=== PATIENT | male | born 1965 | race American Indian/Alaskan Native ===

== ENCOUNTER 2019-10-10 09:56 | Outpatient (CLI) | payer MEDICARE, MEDICAID, SELFPAY | END 2019-10-10 09:57 | disposition home or self-care (01) | PROVIDERS: PCP Internal Medicine; Visit Provider Nurse Practitioner Family | DX: J30.9 Allergic rhinitis, unspecified (principal); J30.1 Allergic rhinitis due to pollen | CPT/HCPCS: 36415; 82785; 86003 ==

== ENCOUNTER 2019-10-15 09:08 | Outpatient (CLI) | payer MEDICARE, MEDICAID, SELFPAY ==
--- NOTE | ~2019-10-15 | CT_ITS ---
EXAMINATION: CT abdomen pelvis w con INDICATION: Nausea, hematochezia, weight loss TECHNIQUE: Computed tomographic images of the abdomen and pelvis were obtained after the administrati on of 100 cc of Omnipaque 350 intravenous contrast. The dose-length product (DLP) was 833.15 mGy-cm. Automated exposure control and iterative reconstruction technique were employed. COMPARISON: 07/24/2016 FINDINGS: Minimal dependent atelectasis is present in the lung bases. The heart size is normal. The l iver is diffusely low in attenuation when compared with the spleen, consistent with hepatic steatosis . The spleen, pancreas, and adrenal glands are normal. Cysts of the kidneys measure up to 5 cm on the right. No pathologically enlarged abdominal or pelvic lymph nodes are identified. There is no free i ntraperitoneal gas or evidence of bowel obstruction. There is a diverticulum of the second/third port ion of the duodenum. The appendix is normal. There is moderate lower lumbar spondylosis. Skin thicken ing or inflammatory change are seen near the umbilicus. There appears to be mild thickening of the bl adder wall. IMPRESSION: 1. No CT correlate for the patient's symptoms. 2. Mild circumferential thickening of the bladder wall which may reflect chronic outlet obstruction. 3. Diffuse hepatic steatosis. Reviewed, dictated and finalized at location A. OW INSTALLATION SUBCONTRACTOR IMPRESSION: 1. No CT correlate for the patient's symptoms. 2. Mild circumferential thickening of the bladder wall which may reflect chroni c outlet obstruction. 3. Diffuse hepatic steatosis.
[2019-10-15 09:50] LABS: Blood Urea Nitrogen 17 mg/dL (8-26); Estimated Glomerular Filt Rate > 60
== END 2019-10-15 09:09 | disposition home or self-care (01) ==
LOC: ANHIMG 09:12
PROVIDERS: PCP Internal Medicine; Visit Provider Nurse Practitioner Family
DX: R11.0 Nausea (principal); K92.1 Melena; K76.0 Fatty (change of) liver, not elsewhere classified; R63.4 Abnormal weight loss; N32.9 Bladder disorder, unspecified
CPT/HCPCS: 74177; Q9967

== ENCOUNTER 2019-10-17 07:21 | Outpatient (CLI) | payer MEDICARE, MEDICAID, SELFPAY ==
--- NOTE | ~2019-10-17 | NM_ITS ---
EXAM: NM gastric emptying study DATE: 10/17/2019 12:47 INDICATION: Gastroesophageal reflux disease. TECHNIQUE: A gastric emptying study was performed using the methodology of Josafat DIGGS, et al. J Nucl Med 2007; 48:568-572. The patient was given a meal consisting of 2 scrambled eggs labeled with 0.972 mCi Tc-99m sulfur colloid, 2 slices of toast, two packages of jam, and approximately 120 mL of water . Simultaneous anterior and posterior 1-min images of the abdomen were obtained with the patient supi ne at multiple time points over a total period of 4 hours. The geometric mean of anterior and posteri or views was determined, and the percentage retention was calculated for each time point. COMPARISON: CT abdomen and pelvis 10/15/2019 FINDINGS: Gastric retention of the radiotracer-labeled meal was 25%, 80%, and 47% at the 1-hour, 2-h our, and 4-hour time points, respectively. With this technique, apparent rapid gastric emptying is de león ggested by <30% gastric retention at 1 hour. Delayed gastric emptying is defined by gastric retention of >90% at 1 hour, >60% retention at 2 hours, or >10% retention at 4 hours. IMPRESSION: 1. Delayed gastric emptying. Reviewed, dictated and finalized at location A. AINABLE DESIGN COORDINATOR
== END 2019-10-17 07:22 | disposition home or self-care (01) ==
PROVIDERS: PCP Internal Medicine; Visit Provider Nurse Practitioner Family
DX: R11.0 Nausea (principal); K21.9 Gastro-esophageal reflux disease without esophagitis; K30 Functional dyspepsia
CPT/HCPCS: 78264; A9541

== ENCOUNTER 2021-06-07 10:33 | Outpatient (CLI) | payer MEDICARE, MEDICAID, SELFPAY | END 2021-06-07 10:34 | disposition home or self-care (01) | LOC: ANHAUDIO 10:34 | PROVIDERS: PCP Internal Medicine; Visit Provider Internal Medicine | DX: H91.93 Unspecified hearing loss, bilateral (principal) | CPT/HCPCS: 99199 ==

== ENCOUNTER 2021-10-24 12:35 | Outpatient (CLI) | payer MEDICARE, MEDICAID, SELFPAY | END 2021-10-24 12:36 | disposition home or self-care (01) | LOC: ANHAUDIO 12:37 | PROVIDERS: PCP Internal Medicine; Visit Provider Internal Medicine | DX: H90.3 Sensorineural hearing loss, bilateral (principal) | CPT/HCPCS: 92557; 92567 ==

== ENCOUNTER 2021-11-23 09:18 | Outpatient (RCR) | payer MEDICARE, MEDICAID, SELFPAY | END 2021-11-23 23:59 | disposition home or self-care (01) | LOC: ANHAUDIO 09:18 | PROVIDERS: PCP Internal Medicine; Referring Provider Internal Medicine; Visit Provider Internal Medicine | DX: Z46.1 Encounter for fitting and adjustment of hearing aid (principal) | CPT/HCPCS: V5160; V5261 ==

== ENCOUNTER 2021-12-06 07:47 | Outpatient (CLI) | payer MEDICARE, MEDICAID, SELFPAY ==
[2021-12-06 08:45] LABS: Hemoglobin A1C 7.1 % (<5.7)
[2021-12-06 08:46] LABS: Alanine Aminotransferase 24 U/L (4-50); Albumin Level 4.4 g/dL (3.5-5.1); Alkaline Phosphatase 55 U/L (38-126); Anion Gap 8 mmol/L (8-16); Aspartate Amino Transferase 27 U/L (17-59); Bilirubin,Total 0.5 mg/dL (0.2-1.3); Blood Urea Nitrogen 20 mg/dL (9-20); Carbon Dioxide 28 mmol/L (22-30); Chloride 105 mmol/L (98-107); Cholesterol 94 mg/dL (0-200); Estimated Glomerular Filt Rate > 60; Glucose 113 mg/dL (65-110); HDL Direct 26 mg/dL; Potassium 4.2 mmol/L (3.4-5.0); Sodium 141 mmol/L (137-145); Triglycerides 120 mg/dL (<150)
[2021-12-06 08:57] LABS: LDL Cholesterol Direct 44 mg/dL
[2021-12-06 09:04] LABS: Creatinine Urine 92.2 mg/dL
[2021-12-06 09:07] LABS: Microalbumin Urine Random 6.5 mg/L (0-16.7)
== END 2021-12-06 07:48 | disposition home or self-care (01) ==
LOC: ANHLAB 07:49
PROVIDERS: PCP Internal Medicine; Visit Provider Internal Medicine
DX: E11.9 Type 2 diabetes mellitus without complications (principal)
CPT/HCPCS: 36415; 80053; 80061; 82043; 83036

== ENCOUNTER 2022-03-23 09:35 | Outpatient (CLI) | payer MEDICARE, MEDICAID, SELFPAY ==
--- NOTE | ~2022-03-23 | US_ITS ---
EXAMINATION: US abdomen complete DATE: 03/23/2022 10:13 INDICATION: Nonalcoholic fatty liver disease. TECHNIQUE: Multiple grayscale and Doppler ultrasound images of the abdomen were obtained. COMPARISON: CT abdomen and pelvis 10/15/2019 FINDINGS: The pancreas is obscured by bowel gas. The liver is normal without focal lesion. No liver s urface nodularity. There is normal flow in main portal vein. The gallbladder is not well visualized. The common duct is normal and measures 5 mm. Inferior vena cava is normal. Abdominal aorta is normal in caliber. The kidneys are normal in size. There is a 6.5 cm cyst in right kidney. The spleen is nor mal in size. IMPRESSION: 1. Normal liver. Reviewed, dictated and finalized at location A. IMPRESSION: 1. Normal liver.
== END 2022-03-23 09:36 | disposition home or self-care (01) ==
PROVIDERS: PCP Physician Assistant Medical; Visit Provider Physician Assistant Medical
DX: K76.0 Fatty (change of) liver, not elsewhere classified (principal); N28.1 Cyst of kidney, acquired
CPT/HCPCS: 76700

== ENCOUNTER 2022-03-27 15:56 | Emergency (ER) | payer MEDICARE, MEDICAID, SELFPAY ==
[2022-03-27 16:08] VITALS: BP 143/62; PULSE 70; RESP 16; TEMP 36.8; O2SAT 99
--- NOTE | 2022-03-27 16:14 | ED.URI ---
HPI - URI/Sore Throat General Chief Complaint: Upper Respiratory Infection Stated Complaint: Congestion Time Seen by Provider: 03/27/22 16:14 Source: patient, RN notes reviewed and old records reviewed Mode of arrival: ambulatory Limitations: no limitations History of Present Illness HPI Narrative: 56-year-old male with a history of diabetes, depression, hypertension presents to the [facility] with complaints of productive cough. Denies chest pain, abdominal pain. Denies fevers. Symptoms for over 2 weeks. Related Data Home Medications Medication Instructions Recorded Confirmed acidophilus 100 million 1 cap PO DAILY 06/25/19 01/04/22 cell-pectin, citrus 10 mg capsule (Acidophilus Probiotic) atorvastatin 20 mg tablet 20 mg PO DAILY 06/25/19 01/04/22 citalopram 40 mg tablet 40 mg PO DAILY 06/25/19 01/04/22 eluxadoline 100 mg tablet (Viberzi) 100 mg DAILY 06/25/19 01/04/22 gabapentin 800 mg tablet 800 mg TID 06/25/19 01/04/22 insulin glargine 100 unit/mL (3 150 unit subcut ONCE 06/25/19 01/04/22 mL) subcutaneous pen (Basaglar KwikPen U-100 Insulin) lisinopril 40 mg tablet 40 mg PO DAILY 06/25/19 01/04/22 pantoprazole 40 mg tablet,delayed 40 mg PO QAM 06/25/19 01/04/22 release vitamin B complex (B 1 tablet PO DAILY 06/25/19 01/04/22 Complex-Vitamin B12 tablet) empagliflozin 10 mg tablet 10 mg PO DAILY 01/04/22 01/04/22 (Jardiance) Aspir-81 03/27/22 insulin aspart U-100 100 unit/mL subcut 03/27/22 (3 mL) subcutaneous pen (Novolog Flexpen U-100 Insulin aspart) nifedipine 90 mg tablet,extended mg PO 03/27/22 release Allergies Allergy/AdvReac Type Severity Reaction Status Date / Time insulin glulisine Allergy Severe HIVES Verified 01/04/22 12:59 Review of Systems Review of Systems: All systems reviewed & are unremarkable except as noted in HPI and below Constitutional: Constitutional: Reports no additional constitutional complaints, Denies chills and Denies fever(s) Eyes: Eyes: Reports no additional eye complaints ENT: Reports system reviewed and no additional complaints, except as documented Cardiovascular: Cardiovascular: Reports no additional cardiovascular complaints Respiratory: Respiratory: Reports as per HPI, Reports chest congestion, Reports cough, Denies dyspnea and Denies wheezing Gastrointestinal: Gastrointestinal: Reports no additional gastrointestinal complaints Musculoskeletal: Musculoskeletal: Reports no additional musculoskeletal complaints Integumentary/Breasts: Skin/Breast: Reports system reviewed and no additional complaints, except as docu Neurologic: Reports system reviewed and no additional complaints, except as documented Psychiatric: Psychiatric: Reports no additional psychiatric complaints Allergic/Immunologic: Allergic/Immunologic: Reports no additional allergic/immunologic complaints [facility] Past Medical History Medical History Allergic rhinitis, unspecified Asthma Cough Essential (primary) hypertension Obstructive sleep apnea (adult) (pediatric) Physical deconditioning SOB (shortness of breath) Family History Family History Grandparent Family history of blood dyscrasia Hypertension Family history of lung cancer Diabetes mellitus Mother Depression Family history of migraine headaches Cerebrovascular accident Carcinoma of colon Family history of Alzheimer's disease Family history of seizure disorder Family history of malignant neoplasm Family history of dementia Father Depression Carcinoma of colon Family history of diabetes mellitus in first degree relative Diabetes mellitus Family history of kidney disease Family history of chronic obstructive pulmonary disease Family history of malignant melanoma Sibling Diabetes mellitus Family history of sleep apnea Other Family history of alcoholism Family h
== END 2022-03-27 16:39 | disposition home or self-care (01) ==
PROVIDERS: Emergency Provider Nurse Practitioner; PCP Internal Medicine
DX: J21.9 Acute bronchiolitis, unspecified (principal); J45.909 Unspecified asthma, uncomplicated; I10 Essential (primary) hypertension; G47.33 Obstructive sleep apnea (adult) (pediatric)
CPT/HCPCS: 99213; G0463

== ENCOUNTER 2022-10-13 08:26 | Outpatient (CLI) | payer MEDICARE, MEDICAID, SELFPAY ==
[2022-10-13 09:15] LABS: Alanine Aminotransferase 26 U/L (6-50); Albumin Level 4.2 g/dL (3.5-5.1); Alkaline Phosphatase 61 U/L (38-126); Anion Gap 7 mmol/L (8-16); Aspartate Amino Transferase 23 U/L (17-59); Bilirubin,Total 0.5 mg/dL (0.2-1.3); Blood Urea Nitrogen 18 mg/dL (9-20); Calcium 8.7 mg/dL (8.4-10.2); Carbon Dioxide 25 mmol/L (22-30); Chloride 106 mmol/L (98-107); Estimated Glomerular Filt Rate > 60; Glucose 170 mg/dL (65-110); Potassium 4.4 mmol/L (3.4-5.0); Sodium 138 mmol/L (137-145)
[2022-10-13 09:44] LABS: Prostate Specific Antigen 0.2 ng/mL (< OR = 4.0)
[2022-10-13 10:50] LABS: Creatinine Urine 55.6 mg/dL
[2022-10-13 16:57] LABS: MALB Creatinine Ratio < 10.8 mg/g (0-30); Microalbumin Urine Random < 6.0 mg/L (0-16.7)
== END 2022-10-13 08:27 | disposition home or self-care (01) ==
PROVIDERS: PCP Internal Medicine; Visit Provider Internal Medicine
DX: E11.9 Type 2 diabetes mellitus without complications (principal); Z12.5 Encounter for screening for malignant neoplasm of prostate
CPT/HCPCS: 36415; 80053; 82043; 83036; 84153; G0103

== ENCOUNTER 2023-02-15 08:36 | Outpatient (CLI) | payer MEDICARE, MEDICAID, SELFPAY ==
[2023-02-15 09:21] LABS: Hematocrit 45.1 % (42.0-52.0); Hemoglobin 15.3 g/dL (14.0-18.0); Mean Corpuscular HGB Conc 33.9 g/dl (32-36); Mean Corpuscular Hemoglobin 28.4 pg (26-34); Mean Corpuscular Volume 83.7 fl (80-100); Mean Platelet Volume 11.8 fl (7.4-10.4); Platelet Count Result 204 k/mm3 (150-375); Red Blood Count 5.39 M/mm3 (4.6-6.20); Red Cell Distribution Width 13.7 % (11.5-14.5); White Blood Count 5.9 K/mm3 (4.5-10.0)
[2023-02-15 09:30] LABS: Alanine Aminotransferase 27 U/L (6-50); Albumin Level 4.3 g/dL (3.5-5.1); Alkaline Phosphatase 52 U/L (38-126); Anion Gap 6 mmol/L (8-16); Aspartate Amino Transferase 25 U/L (17-59); Bilirubin,Total 0.5 mg/dL (0.2-1.3); Blood Urea Nitrogen 22 mg/dL (9-20); Carbon Dioxide 27 mmol/L (22-30); Chloride 107 mmol/L (98-107); Cholesterol 96 mg/dL (0-200); Estimated Glomerular Filt Rate > 60; Glucose 118 mg/dL (65-110); HDL Direct 35 mg/dL; Potassium 4.1 mmol/L (3.4-5.0); Sodium 140 mmol/L (137-145); Triglycerides 74 mg/dL (<150)
[2023-02-15 09:41] LABS: LDL Cholesterol Direct 49 mg/dL
[2023-02-15 09:43] LABS: Creatinine Urine 93.5 mg/dL
[2023-02-15 09:47] LABS: Vitamin D 25 Hydroxy 24.4 ng/mL
[2023-02-15 09:47] LABS: MALB Creatinine Ratio 6.8 mg/g (0-30); Microalbumin Urine Random 6.4 mg/L (0-16.7)
== END 2023-02-15 08:37 | disposition home or self-care (01) ==
PROVIDERS: PCP Internal Medicine
DX: E78.2 Mixed hyperlipidemia (principal); E55.9 Vitamin D deficiency, unspecified; E11.65 Type 2 diabetes mellitus with hyperglycemia; Z79.4 Long term (current) use of insulin
CPT/HCPCS: 36415; 80053; 80061; 82043; 82306; 82607; 85027

== ENCOUNTER 2023-03-05 08:59 | Outpatient (CLI) | payer MEDICARE, MEDICAID, SELFPAY ==
--- NOTE | 2023-03-28 19:53 | WPDSLEEPSTUD ---
Sleep Study Date of Study: 03/05/23 Ordering Provider: Rahul Restrepo APRN Interpreting Physician: Silvia Gonsalez DO Sleep Study Type: Split Polysomnogram Height: 1.8 m Weight: 93.44 kg Body Mass Index: 28.7 Neck Circumference (inches): 17.25 [place]: 3 Reason for Sleep Study Told she had sleep apnea while under anesthesia. Sleep History The patient is a 57 year male with diabetes, depression, GERD, asthma, neuropathy, irritable bowel syndrome, hypertension, arthritis and previously diagnosed sleep apnea that had sleep study ordered by the pulmonary group so the patient could requalify for PAP Therapy. the patient rarely awakens from sleep short of breath. He occasionally awakens at night with heartburn, belching or cough. He constantly snores and occasionally loudly enough that others complain. He frequently has trouble sleeping when he has a cold. He denies waking up gasping for air throughout the night. He occasionally has breathing problems at night observed by himself or others. He occasionally sweats excessively at night. He denies having heart palpitations or irregular heartbeats during the night. He frequently falls asleep during the day but never while driving. He denies sleep paralysis, cataplexy and hypnagogic / hypnopompic hallucinations. He denies having trouble at school or work due to sleepiness. He denies feeling afraid of going to sleep. He denies having nightmares. He occasionally remembers his dreams. He occasionally has thoughts racing through his mind. He occasionally feels sad, depressed and anxious. He denies having muscular tension. He denies noticing parts of his body jerk. He occasionally kicks during the night. He denies having crawling and aching feelings in his legs but rarely has leg pain during he occasionally grinds his teeth during sleep never awakens with morning jaw pain. He denies being bothered by pain during the day and denies being awakened by pain during the night. He occasionally wakes up feeling stiff in morning. He denies waking up with sore or achy muscles. He denies waking up with pain in the neck, spine and other joints. He goes to bed between 10-11 p.m. on weekdays and at midnight on the weekends. It takes him 1-2 hours to fall asleep. He wakes up 1-2 times throughout night to urinate and is able to fall back asleep within 15-20 minutes. He wakes up between 6-7 a.m. on weekdays and 8:00 a.m. on weekends. He typically gets 6-8 hours of sleep per night. He will stay in bed for 20-30 minutes after waking up the morning. He currently lives alone. He does not consume any caffeinated beverages within 2 hours of bedtime. He does not engage in physical exercise before bedtime. He will read and watch television before falling asleep. He will take naps in the afternoon or the evening that are refreshing. He consumes 2 caffeinated beverages per day. He denies tobacco, alcohol and recreational drug use. [facility] Past Medical History Medical History Allergic rhinitis, unspecified Asthma Cough Essential (primary) hypertension Obstructive sleep apnea (adult) (pediatric) Physical deconditioning SOB (shortness of breath) Family History Family History Grandparent Family history of blood dyscrasia Hypertension Family history of lung cancer Diabetes mellitus Mother Depression Family history of migraine headaches Cerebrovascular accident Carcinoma of colon Family history of Alzheimer's disease Family history of seizure disorder Family history of malignant neoplasm Family history of dementia Father Depression Carcinoma of colon Family history of diabetes mellitus in first degree relative Diabetes mellitus Family history of kidney disease Family history of chronic obstructive pulmonary disease Family history of malignant melanoma Sib
[2023-03-28 19:56] VITALS: BMI 28.7
== END 2023-03-06 06:56 | disposition home or self-care (01) ==
LOC: ANHCSM 09:00
PROVIDERS: PCP Internal Medicine; Visit Provider Nurse Practitioner Family
DX: G47.33 Obstructive sleep apnea (adult) (pediatric) (principal); E11.9 Type 2 diabetes mellitus without complications; K21.9 Gastro-esophageal reflux disease without esophagitis; I10 Essential (primary) hypertension; J45.909 Unspecified asthma, uncomplicated
CPT/HCPCS: 95811

== ENCOUNTER 2023-12-25 09:03 | Outpatient (CLI) | payer MEDICARE, MEDICAID, SELFPAY ==
[2023-12-25 09:45] LABS: Basophils Percent Auto 0.5 % (0.2-1.2); Eosinophils Absolute Auto 0.1 K/mm3 (0-0.3); Eosinophils Percent Auto 1.1 % (0-4.4); Hematocrit 42.2 % (42.0-52.0); Hemoglobin 14.1 g/dL (14.0-18.0); Immature Granulocyte Absolute 0.02 K/mm3 (0.00-0.031); Immature Granulocyte Percent A 0.3 % (0-0.5); Lymphocytes Absolute Auto 1.29 K/mm3 (0.9-3.2); Lymphocytes Percent Auto 20.1 % (18.3-44.2); Mean Corpuscular HGB Conc 33.4 g/dl (32-36); Mean Corpuscular Hemoglobin 28.7 pg (26-34); Mean Corpuscular Volume 85.9 fl (80-100); Mean Platelet Volume 11.7 fl (7.4-10.4); Monocytes Absolute Auto 0.5 K/mm3 (0.1-0.6); Neutrophils Absolute Auto 4.6 K/mm3 (1.3-6.7); Platelet Count Result 173 k/mm3 (150-375); Red Blood Count 4.91 M/mm3 (4.6-6.20); Red Cell Distribution Width 13.8 % (11.5-14.5); White Blood Count 6.4 K/mm3 (4.5-10.0)
[2023-12-25 09:58] LABS: Alanine Aminotransferase 22 U/L (6-50); Alkaline Phosphatase 56 U/L (38-126); Anion Gap 6 mmol/L (4-12); Aspartate Amino Transferase 22 U/L (17-59); Bilirubin,Total 0.5 mg/dL (0.2-1.3); Blood Urea Nitrogen 20 mg/dL (9-20); Calcium 9.1 mg/dL (8.4-10.2); Carbon Dioxide 25 mmol/L (22-30); Chloride 106 mmol/L (98-107); Estimated Glomerular Filt Rate > 60; Glucose 141 mg/dL (65-110); Potassium 4.6 mmol/L (3.4-5.0); Sodium 137 mmol/L (137-145)
[2023-12-25 10:06] LABS: Hemoglobin A1C 8.3 % (<5.7)
== END 2023-12-25 09:04 | disposition home or self-care (01) ==
LOC: ANHLAB 09:06
PROVIDERS: PCP Internal Medicine; Visit Provider Internal Medicine
DX: Z01.818 Encounter for other preprocedural examination (principal); E11.9 Type 2 diabetes mellitus without complications
CPT/HCPCS: 36415; 80053; 83036; 85025